=== PATIENT | female | born 1985 | race Caucasian/White ===

== ENCOUNTER 2016-12-24 19:50 | Emergency (ER) | payer MEDICAID ==
[~2016-12-24] VITALS: Ht 162.6 cm; Wt 75.5 kg
[~2016-12-24 19:50] MED LIST: CEPH-443 PO; HYDR-3498 PO; IBUP-1542 PO
[2016-12-24 19:59] VITALS: Ht 162.6 cm; Wt 75.5 kg
[2016-12-24] MEDS ORDERED: BEN50 PO (20:14)
[2016-12-24] MEDS ORDERED: FAMO-18 PO (20:14)
[2016-12-24] MEDS ORDERED: PRED50TA PO (20:14)
--- NOTE | 2016-12-24 20:19 | ERD ---
ER Documentation Chief Complaint Date/Time DATE: 12/24/16 TIME: 20:16 Chief Complaint scaterred body rashes w/ itchiness x 1 day HPI 31-year-old female presents to emergency department for complaints of rash all over the body and itching started today. Patient did not know if she ate something different or new. Patient is complaining of patient is in the throat, but denies any shortness of breath or stridor. Patient denies any lip swelling, tongue swelling or stridor. Patient denies any shortness of breath or wheezing. Patient took some Benadryl at home which helps with only mild relief. ROS All systems reviewed and are negative except as per history of present illness. Medications Home Meds Active Scripts Prednisone* (Prednisone*) 50 Mg Tablet, 50 MG PO DAILY for 5 Days, TAB Prov:OMER DÍAZ NP 12/24/16 Famotidine* (Pepcid*) 20 Mg Tablet, 20 MG PO BID, #20 TAB Prov:OMER DÍAZ NP 12/24/16 Diphenhydramine Hcl* (Benadryl*) 50 Mg Cap, 50 MG PO Q6H Y for ITCHING/RASH, # 30 CAP Prov:OMER DÍAZ NP 12/24/16 Hydrocodone Bit-Acetaminophen* ([place]*) 5-325 Mg Tab, 1 TAB PO Q6 Y for PAIN, # 7 TAB Prov:KE NUNO MD 12/23/15 Hydrocodone Bit-Acetaminophen* ([place]*) 5-325 Mg Tab, 1 TAB PO Q6 Y for PAIN, # 10 TAB Prov:SILVER HECK MD 12/17/15 Ibuprofen* (Motrin*) 600 Mg Tab, 600 MG PO Q6, #20 TAB Prov:SILVER HECK MD 12/17/15 Cephalexin* (Keflex*) 500 Mg Capsule, 500 MG PO QID for 7 Days, CAP Prov:SILVER HECK MD 12/17/15 Allergies Allergies: Coded Allergies: Shellfish (Verified Allergy, Intermediate, RASH, 12/01/13) fish derived (Verified Allergy, Intermediate, RASH, 12/01/13) ALLERGIC TO SEAFOOD AND SHELLFISH Pineapple (Verified Allergy, Mild, RASHES, ITCHINESS, 12/01/13) PMhx/Soc Medical and Surgical Hx: pt denies Medical Hx, pt denies Surgical Hx History of Surgery: No Anesthesia Reaction: No Hx Neurological Disorder: No Hx Respiratory Disorders: No Hx Cardiac Disorders: No Hx Psychiatric Problems: No Hx Miscellaneous Medical Probl: No Hx Alcohol Use: No Hx Substance Use: No Hx Tobacco Use: No FmHx Family History: No coronary disease, No diabetes, No other Physical Exam Vitals Vital Signs Date Time Temp Pulse Resp B/P Pulse Ox O2 Delivery O2 Flow Rate FiO2 12/24/16 19:59 97.8 77 20 113/88 100 Physical Exam GENERAL: The patient is well developed and appropriate for usual state of health, in no apparent distress. CHEST: Clear to auscultation bilaterally. There are no rales, wheezes or rhonchi. No stridor noted. HEART: Regular rate and rhythm. No murmurs, clicks, rubs or gallops. No S3 or S4. ABDOMEN: Soft, nontender and nondistended. Good bowel sounds. No rebound or guarding. No gross peritonitis. No gross organomegaly or masses. No English sign or McBurney point tenderness. BACK: No midline or flank tenderness. EXTREMITIES: Equal pulses bilaterally. There is no peripheral clubbing, cyanosis or edema. No focal swelling or erythema. Full range of motion. Grossly neurovascularly intact. NEURO: Alert and oriented. Cranial nerves 2-12 intact. Motor strength in all 4 extremities with 5/5 strength. Sensation grossly intact. Normal speech and gait. SKIN: Maculopapular rash noted all over the body. There is no apparent rash or petechia. The skin is warm and dry. HEMATOLOGIC AND LYMPHATIC: There is no evidence of excessive bruising or lymphedema. No gross cervical, axillary, or inguinal lymphadenopathy. Procedures/MDM Medical decision making: Patient symptoms are consistent with allergic reaction , urticaria, no symptoms of anaphylactic shock, no oral airway obstruction noted , no coagulopathies noted no symptoms of sepsis at this time, patient appears well and is hemodynamically stable. Patient is given prescription for Benadryl, prednisone, Pepcid, is advised to avoid common allergens, patient is advised to return to emergency department for any worsening symptoms. Patient is advised to follow with primary care doctor in 2-3 days for reevaluation of symptoms Departure Diagnosis: Primary Impression: Urticaria Condition: Stable Patient Instructions: OMER Mackey NP Dec 24, 2016 20:19
== END 2016-12-24 20:14 | disposition home or self-care (01) ==
LOC: E/R 19:50
DX: L50.9 Urticaria, unspecified (principal)
CPT/HCPCS: 99283

== ENCOUNTER 2019-01-24 16:12 | Emergency (ER) | payer MEDICAID ==
[~2019-01-24] VITALS: Ht 157.5 cm; Wt 77.7 kg
[~2019-01-24 16:12] MED LIST changes: +BEN50 PO; +FAMO-96 PO; +MEDR10TA2 PO; +ONDA8TAB14 PO; +PRED50TA PO
[2019-01-24 16:13] VITALS: Ht 157.5 cm; Wt 77.7 kg
[2019-01-24] MEDS ORDERED: SOD CHLORIDE 0.9% 1,000 ML IV STA (16:51)
[2019-01-24] MEDS ORDERED: morphine 4 MG/ML VIAL IV STA (16:51)
[2019-01-24] MEDS ORDERED: morphine 2 MG INJ IV STA (17:32)
[2019-01-24] MEDS ORDERED: HYDR-4011 PO (19:33)
--- NOTE | 2019-01-24 19:40 | ERD ---
ER Documentation Chief Complaint Chief Complaint 16 WEEKS PREG , VAG BLEED TODAY , LMP 10/01/18 HPI 33-year-old G3, P2 female in her 16th week of presents with complaint of vaginal bleeding and cramping which started 1 hour ago today. States that she is been through 5 pads and that time. States that she is feeling a little bit lightheaded but denies any syncope, palpitations, or chest pain. Last menstrual period is . She has an OB. Denies any possibility of trauma to the vaginal wall including sexual intercourse. Denies any dysuria, flank pain, fevers, right lower quadrant pain. Patient is ambulatory. Denies any allergies. Denies any medical problems. ROS All systems reviewed and are negative except as per history of present illness. Medications Home Meds Active Scripts Hydrocodone/Acetaminophen ([place] 5-325 Tablet) 1 Each Tablet, 1 TAB PO Q6H PRN for PAIN, #15 TAB Prov:CHANEL ARIAS 01/24/19 Ondansetron (Ondansetron Odt) 8 Mg Tab.rapdis, 8 MG PO Q6H PRN for NAUSEA AND/OR VOMITING, #6 TAB Prov:SILVER HECK MD 09/11/18 Medroxyprogesterone Acetate* (Provera*) 10 Mg Tablet, 10 MG PO DAILY for 7 Days, TAB Prov:SILVER HECK MD 09/11/18 Ibuprofen* (Motrin*) 600 Mg Tab, 600 MG PO Q6, #20 TAB Prov:SILVER HECK MD 09/11/18 Prednisone* (Prednisone*) 50 Mg Tablet, 50 MG PO DAILY for 5 Days, TAB Prov:OMER DÍAZ NP 12/24/16 Famotidine* (Pepcid*) 20 Mg Tablet, 20 MG PO BID, #20 TAB Prov:OMER DÍAZ NP 12/24/16 Diphenhydramine Hcl* (Benadryl*) 50 Mg Cap, 50 MG PO Q6H PRN for ITCHING/RASH, #30 CAP Prov:OMER DÍAZ NP 12/24/16 Hydrocodone Bit-Acetaminophen* ([place]*) 5-325 Mg Tab, 1 TAB PO Q6 PRN for PAIN, #7 TAB Prov:KE NUNO MD 12/23/15 Hydrocodone Bit-Acetaminophen* ([place]*) 5-325 Mg Tab, 1 TAB PO Q6 PRN for PAIN, #10 TAB Prov:SILVER HECK MD 12/17/15 Ibuprofen* (Motrin*) 600 Mg Tab, 600 MG PO Q6, #20 TAB Prov:SILVER HECK MD 12/17/15 Cephalexin* (Keflex*) 500 Mg Capsule, 500 MG PO QID for 7 Days, CAP Prov:SILVER HECK MD 12/17/15 Allergies Allergies: Coded Allergies: Shellfish (Verified Allergy, Intermediate, RASH, 01/24/19) fish derived (Verified Allergy, Intermediate, RASH, 01/24/19) ALLERGIC TO SEAFOOD AND SHELLFISH pineapple (Verified Allergy, Mild, RASHES, ITCHINESS, 01/24/19) PMhx/Soc History of Surgery: Yes () Anesthesia Reaction: No Hx Neurological Disorder: No Hx Respiratory Disorders: No Hx Cardiac Disorders: No Hx Psychiatric Problems: No Hx Miscellaneous Medical Probl: No Hx Alcohol Use: No Hx Substance Use: No Hx Tobacco Use: No Smoking Status: Never smoker FmHx Family History: No diabetes, No coronary disease, No other Physical Exam Vitals Vital Signs Date Temp Pulse Resp B/P (MAP) Pulse Ox O2 O2 Flow FiO2 Time Delivery Rate 01/24/19 98.1 106 16 143/70 98 16:13 (94) Physical Exam Const: No acute distress Head: Atraumatic Eyes: Normal Conjunctiva ENT: Normal External Ears, Nose and Mouth. Neck: Full range of motion. No meningismus. Resp: Clear to auscultation bilaterally Cardio: Regular rate and rhythm, no murmurs Abd: Soft, non tender, non distended. Normal bowel sounds. Negative McBurney's. Patient ambulatory. Skin: No petechiae or rashes Back: No midline or flank tenderness Ext: No cyanosis, or edema Neur: Awake and alert Psych: Normal Mood and Affect Result Diagram: 01/24/19 1720 Results 24 hrs Laboratory Tests Test 01/24/19 17:20 White Blood Count 9.7 10^3/ul Red Blood Count 4.20 10^6/ul Hemoglobin 11.1 g/dl Hematocrit 35.0 % Mean Corpuscular Volume 83.3 fl Mean Corpuscular Hemoglobin 26.4 pg Mean Corpuscular Hemoglobin Concent 31.7 g/dl Red Cell Distribution Width 15.0 % Platelet Count 243 10^3/UL Mean Platelet Volume 10.9 fl Immature Granulocytes % 0.400 % Neutrophils % 69.5 % Lymphocytes % 22.3 % Monocytes % 6.5 % Eosinophils % 1.1 % Basophils % 0.2 % Nucleated Red Blood Cells % 0.0 /100WBC Immature Granulocytes # 0.040 10^3/ul Neutrophils # 6.8 10^3/ul Lymphocytes # 2.2 10^3/ul Monocytes # 0.6 10^3/ul Eosinophils # 0.1 10^3/ul Basophils # 0.0 10^3/ul Nucleated Red Blood Cells # 0.0 10^3/ul Urine Color YELLOW Urine Clarity SLIGHTLY CLOUDY Urine pH 5.0 Urine Specific [place] 1.025 Urine Ketones TRACE mg/dL Urine Nitrite NEGATIVE mg/dL Urine Bilirubin NEGATIVE mg/dL Urine Urobilinogen NEGATIVE mg/dL Urine Leukocyte Esterase NEGATIVE [place]/ul Urine Microscopic RBC 23 /HPF Urine Microscopic WBC 2 /HPF Urine Squamous Epithelial Cells FEW /HPF Urine Bacteria FEW /HPF Urine Mucus FEW /HPF Urine Hemoglobin 3+ mg/dL Urine Glucose NEGATIVE mg/dL Urine Total Protein NEGATIVE mg/dl Beta HCG, Quantitative 9357.6 mIU/ml Current Medications Medications Dose Sig/Jessie Start Time Status Last (Trade) Ordered Route PRN Stop Time Admin Dose Reason Admin Sodium 1,000 ml @ Q1H STAT 01/24/19 DC 01/24/19 Chloride 1,000 mls/hr IV 16:51 17:38 01/24/19 17:50 Morphine 2 mg ONCE STAT 01/24/19 DC Sulfate IV 16:51 (morphine) 01/24/19 17:34 Morphine 2 mg ONCE STAT 01/24/19 DC 01/24/19 Sulfate IV 17:32 17:38 (morphine) 01/24/19 17:35 Procedures/MDM ER Course: CBC, UA, beta quant HCG, type and RH, vaginal US/abdominal US ordered. All WNL. MDM: CBC, UA, beta quant HCG, type and RH, vaginal US/abdominal US ordered. All results within limits aside from mild anemia. I discussed the case with Dr. Gates and she recommended that at 17 weeks there is not much that we could do aside from advising her to have pelvic rest as well as bedrest for the next several days and to follow-up with her OB within 24 hours.. I have low suspicion for ectopic based on results of US, hemodynamic stability, physical exam and patient history. I have low suspicion for septic , pyelonephritis, placenta abrupta, appendicitis, cholecystitis, bowel obstruction, ovarian torsion, symptomatic anema, PID, surgical abdomen, or other life threatening conditions based on patient history, physical exam, and lab/imaging results. Patient discharged with strict ER precautions. Patient advised to return to ER if there is worsening cramping or bleeding. Patient advised to follow up with PMD and director of graduate admissions. All questions answered at discharge. Departure Diagnosis: Primary Impression: Vaginal bleeding in patient at less than 20 weeks ges... Additional Impression: Abdominal cramping affecting Condition: Stable Patient Instructions: Bleeding During Early , Abdominal Pain, Early Referrals: [facility] YOU HAVE RECEIVED A MEDICAL SCREENING EXAM AND THE RESULTS INDICATE THAT YOU DO NOT HAVE A CONDITION THAT REQUIRES URGENT TREATMENT IN THE EMERGENCY DEPARTMENT. FURTHER EVALUATION AND TREATMENT OF YOUR CONDITION CAN WAIT UNTIL YOU ARE SEEN IN YOUR DOCTORS OFFICE WITHIN THE NEXT 1-2 DAYS. IT IS YOUR RESPONSIBILITY TO MAKE AN APPOINTMENT FOR FOLOW-UP CARE. IF YOU HAVE A PRIMARY DOCTOR --you should call your primary doctor and schedule an appointment IF YOU DO NOT HAVE A PRIMARY DOCTOR YOU CAN CALL OUR PHYSICIAN REFERRAL HOTLINE AT IF YOU CAN NOT AFFORD TO SEE A PHYSICIAN YOU CAN CHOSE FROM THE FOLLOWING [facility] [address] [address] [facility] [address] [facility] [address] [facility] [address] [facility]. [facility]. [address] Additional Instructions: FOLLOW UP WITH YOUR marine extension agent tomorrow. Return to this facility if you are not improving as expected. In the meantime make sure to rest and refrain from intercourse. Only take [place] if you are experiencing extreme discomfort. CHANEL ARIAS January 24, 2019 19:40
[2019-01-24 19:50] VITALS: BP 136/60; PULSE 93; RESP 16
== END 2019-01-24 19:55 | disposition home or self-care (01) ==
LOC: FTE 16:12
DX: O20.9 Hemorrhage in early pregnancy, unspecified (principal); O26.892 Other specified pregnancy related conditions, second trimester; R10.2 Pelvic and perineal pain; R10.9 Unspecified abdominal pain
CPT/HCPCS: 36415; 76805; 81001; 84702; 85025; 86900; 86901; 96374; J2270; J7030; Z7502

== ENCOUNTER 2019-02-05 18:47 | Emergency (ER) | payer MEDICAID ==
[~2019-02-05] VITALS: Ht 154.9 cm; Wt 79.0 kg
[~2019-02-05 18:47] MED LIST changes: +HYDR-4011 PO
[2019-02-05 18:52] VITALS: BP 133/67; PULSE 100; RESP 18; Ht 154.9 cm; Wt 79.0 kg
[2019-02-05] MEDS ORDERED: ACET325T33 PO (20:30)
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
== END 2019-02-05 20:38 | disposition home or self-care (01) ==
LOC: FTE 18:47
DX: O26.892 Other specified pregnancy related conditions, second trimester (principal); Z3A.19 19 weeks gestation of pregnancy
CPT/HCPCS: 76805; Z7502

== ENCOUNTER 2019-03-29 19:25 | Outpatient (CLI) | payer MEDICAID ==
[~2019-03-29] VITALS: Ht 154.9 cm; Wt 79.2 kg
[~2019-03-29 19:25] MED LIST changes: +ACET325T33 PO; +PREN-19 PO
[2019-03-29 19:57] VITALS: BP 110/56; PULSE 93; RESP 15
--- NOTE | 2019-03-30 00:01 | PN ---
Triage Information Date/Time March 29, 2019 Reason for visit: Uterine contractions Weeks of Gestation 25w 4d /Para 4/2 Diabetes: none Hypertention: none Additional information Pt reports pelvic pressure and contractions. Vaginal fluid, white. Pt also reports NULL's but has not taken Tylenol at home. PMHx: None. PSHx: Hernia repair. Dental surgery. NKDA otherwise allergies to shellfish, fish, pineapple. Objective Vital Signs Date Temp Pulse Resp B/P (MAP) Pulse Ox O2 O2 Flow FiO2 Time Delivery Rate 03/29/19 98.1 93 15 110/56 Room Air 19:57 (74) Heart Rate: 140's Contractions: None Results/Medications Result Diagram: 03/29/19204903/29/192049 Results 24 hrs Laboratory Tests Test 03/29/19 19:30 03/29/19 20:40 03/29/19 20:50 Urine Color YELLOW Urine Clarity CLOUDY A Urine pH 6.0 Urine Specific [place] 1.030 Urine Ketones NEGATIVE Urine Nitrite NEGATIVE Urine Bilirubin NEGATIVE Urine Urobilinogen NEGATIVE Urine Leukocyte Esterase NEGATIVE Urine Microscopic RBC 1 Urine Microscopic WBC 2 Urine Squamous Epithelial Cells MANY A Urine Bacteria FEW A Urine Mucus MODERATE Urine Hemoglobin NEGATIVE Urine Glucose NEGATIVE Urine Total Protein NEGATIVE Membranes Rupture NEGATIVE White Blood Count 8.1 Red Blood Count 3.66 L Hemoglobin 9.6 L Hematocrit 30.5 L Mean Corpuscular Volume 83.3 Mean Corpuscular Hemoglobin 26.2 L Mean Corpuscular Hemoglobin Concent 31.5 L Red Cell Distribution Width 14.8 H Platelet Count 231 Mean Platelet Volume 10.7 H Immature Granulocytes % 0.200 Neutrophils % 68.5 Lymphocytes % 22.1 Monocytes % 7.6 Eosinophils % 1.4 Basophils % 0.2 Nucleated Red Blood Cells % 0.0 Immature Granulocytes # 0.020 Neutrophils # 5.6 Lymphocytes # 1.8 Monocytes # 0.6 Eosinophils # 0.1 Basophils # 0.0 Nucleated Red Blood Cells # 0.0 Sodium Level 136 Potassium Level 3.4 L Chloride Level 110 Carbon Dioxide Level 20 L Anion Gap 6 Blood Urea Nitrogen 12 Creatinine 0.43 L Est Glomerular Filtrat Rate mL/min > 60 Glucose Level 88 Uric Acid 2.4 L Calcium Level 8.7 Total Bilirubin 0.5 Direct Bilirubin 0.00 Indirect Bilirubin 0.5 Aspartate Amino Transf (AST/SGOT) 21 Alanine Aminotransferase (ALT/SGPT) 22 Alkaline Phosphatase 66 Total Protein 6.5 Albumin 3.2 L Globulin 3.30 H Albumin/Globulin Ratio 0.96 Imaging Results EFW 992 grams. Cervical length 4.2 cm. MVP 5.6. Transverse. Disposition: Discharge Assessment/Plan A: IUP at 25w 4d. False labor. P: D/C home. PTL precautions reviewed. To keep her next appt 04/01. MARIBEL BOWEN MD Mar 30, 2019 00:01
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
== END 2019-03-29 23:45 | disposition home or self-care (01) ==
LOC: OBT 19:25 → L-D 19:27 → OBT 23:45
PROVIDERS: ATTEND Obstetrics & Gynecology
DX: O60.02 Preterm labor without delivery, second trimester (principal); Z3A.25 25 weeks gestation of pregnancy
CPT/HCPCS: 76815; 76817; 80053; 81001; 84112; 84560; 85025; G0463